=== PATIENT | male | born 1995 | race Caucasian/White ===

== ENCOUNTER 2017-08-01 09:02 | Emergency (ER) | payer OTHER ==
[~2017-08-01] VITALS: Ht 172.7 cm; Wt 43.0 kg
[~2017-08-01 09:02] MED LIST: LISD50 PO; RISP0.5T2 PO
[2017-08-01 09:10] VITALS: BP 139/80; PULSE 112; RESP 18; TEMP 98.4; O2SAT 100
[2017-08-01] MEDS ORDERED: BACT800T5 PO (09:28)
--- NOTE | 2017-08-01 09:33 | PD ---
HPI Chief Complaint: Skin Problem Time Seen by Provider: 09:16 Travel History International Travel<30 days: No Contact w/Intl Traveler<30days: No Traveled to known affect area: No History of Present Illness HPI Patient comes emergency Department complaining of pimple on his left anterior chinchilla that began approximately week and a half ago has got progressively bigger. Patient reports a mild stinging pain around the site. Denies any known injury. Denies any fevers. Denies doing anything for it. Denies anything making it better or worse. Mom reports that she squeezed it, which caused some discharge. PFSH Past Medical History ADD: Yes ADHD: Yes Asthma: Yes Autoimmune Disease: No Blood Disorders: No Anxiety: No Depression: No Cardiovascular Problems: No Cystic Fibrosis: No Diminished Hearing: No Genitourinary: No Musculoskeletal: No Neurologic: No Psychiatric: No Respiratory: Yes Immunizations Current: Yes Sickle Cell Disease: No Sleep Apnea: No Past Surgical History Other Surgery: No Social History Alcohol Use: No Tobacco Use: No ([employer]) Substance Use: No Allergies-Medications (Allergen,Severity, Reaction): Coded Allergies: No Known Allergies (Verified Adverse Reaction, Unknown, 08/01/17) Reported Meds & Prescriptions Reported Meds & Active Scripts Active Bactrim DS (Sulfamethoxazole-Trimethoprim) 800-160 Mg Tab 1 Tab PO BID Review of Systems General / Constitutional: No: Fever Eyes: No: Visual changes HENT: No: Headaches Cardiovascular: No: Chest Pain or Discomfort Respiratory: No: Shortness of Breath Gastrointestinal: No: Abdominal Pain Genitourinary: No: Dysuria Musculoskeletal: No: Pain Skin: No Rash Neurologic: No: Weakness Psychiatric: No: Depression Endocrine: No: Polydipsia Hematologic/Lymphatic: No: Easy Bruising Physical Exam Narrative GENERAL: Well-developed, well nourished, in no acute distress, and non-ill appearing. SKIN: Small area approximately 2.5 cm in greatest diameter of erythematous noted left anterior mid chinchilla. It is afebrile, mildly tender, and without drainage. There is no induration or crepitus. HEAD: Atraumatic. Normocephalic. EYES: Pupils equal and round. EOMI. No scleral icterus. No injection or drainage. ENT: No nasal bleeding or discharge. Mucous membranes pink and moist. NECK: Trachea midline. Supple. No nuclear rigidity. RESPIRATORY: No accessory muscle use. No respiratory distress. MUSCULOSKELETAL: No obvious deformities. No clubbing. No cyanosis. No edema. Full range of motion. NEUROLOGICAL: Awake and alert. No obvious cranial nerve deficits. Motor grossly within normal limits. Normal speech. PSYCHIATRIC: Appropriate mood and affect; insight and judgment normal. Data Data Last Documented VS Vital Signs Date Time Temp Pulse Resp B/P (MAP) Pulse Ox O2 Delivery O2 Flow Rate FiO2 08/01/17 09:10 98.4 112 18 139/80 (99) 100 Orders Orders Ed Discharge Order (08/01/17 09:33) MDM Medical Decision Making Medical Screen Exam Complete: Yes Emergency Medical Condition: Yes Differential Diagnosis Abscess, cellulitis, hematoma, folliculitis, gangrene Narrative Course The patient has cellulitis. There is no evidence of necrotizing fasciitis/ Forneirs at this time, pain is proportional and no crepitus is noted. There is no evidence of abscess as well at this time. The patient will be discharged on antibiotics. The patient was given signs and symptoms warnings for worsening infection, such as spreading of redness, increasing pain, and/or swelling, associated heat, or fever and instructed to return immediately if these signs or symptoms worsen. The patient is to follow up with physician in 2 days for recheck or return here in 2 days for recheck if unable to establish outpatient follow up. Sooner if worsens or as needed. The patient agrees with plan. Patient in no obvious distress upon re-evaluation. Patient was asked if they wanted to speak to my attending, which the patient did not wish to do at this time. Any questions/concerns in reference to patient diagnosis/condition discussed and clarified prior to patient's discharge. Reinforced sheer importance of close follow up with patient's primary physician or primary care clinic. Instructed patient to return to ED immediately, if symptoms return/ worsen. Patient showed understanding of above instructions. Further instructions and recommendations were detailed in discharge paperwork. Patient ambulated without difficulty out of ED at discharge. Diagnosis Primary Impression: Cellulitis and abscess of left leg Referrals: [facility] Patient Instructions: Cellulitis (ED), General Instructions Additional Instructions: Follow-up with your primary care physician or return here in 2 days for recheck. Take all medication as prescribed. Return to the emergency department if symptoms get worse. Med/Other Pt SpecificInfo: Prescription(s) given Scripts Sulfamethoxazole-Trimethoprim (Bactrim DS) 800-160 Mg Tab 1 TAB PO BID for Infection, #14 TAB 0 Refills Prov: Clara Rico DO 08/01/17 Disposition: 01 DISCHARGE HOME Condition: Stable Marek Hannah Aug 01, 2017 09:33
== END 2017-08-01 09:43 | disposition home or self-care (01) ==
LOC: PHED 09:02
DX: L02.416 Cutaneous abscess of left lower limb (principal); L03.116 Cellulitis of left lower limb
CPT/HCPCS: 99283

== ENCOUNTER 2017-11-13 03:09 | Emergency (ER) | payer OTHER ==
[~2017-11-13] VITALS: Ht 170.2 cm; Wt 45.0 kg
[~2017-11-13 03:09] MED LIST changes: +BACT800T5 PO; -LISD50 PO; -RISP0.5T2 PO
[2017-11-13 03:16] VITALS: BP 122/78; PULSE 112; RESP 16; TEMP 99.2; O2SAT 100
--- NOTE | 2017-11-13 03:43 | PD ---
HPI Chief Complaint: Musculoskeletal Complaint Time Seen by Provider: 03:28 Travel History International Travel<30 days: No Contact w/Intl Traveler<30days: No Traveled to known affect area: No History of Present Illness HPI The patient has a 22-year-old male with a history of DiGeorge's syndrome who complains of a muscle spasm on his right biceps femoris muscle. It started yesterday at 10 AM and went away for a while after massage but came back tonight. He states he feels like he has a muscle cramp/charley horse. This was never happened to him before. He is not on any diuretics or any other medications at all. He denies any trauma. The patient denies any fever, cough , ear pain, diarrhea, nausea, vomiting, abdominal pain, chest pain or shortness of breath. [facility] Past Medical History ADD: Yes ADHD: Yes Asthma: Yes Autoimmune Disease: No Blood Disorders: No Anxiety: No Depression: No Cardiovascular Problems: No Cystic Fibrosis: No Diminished Hearing: No Genitourinary: No Musculoskeletal: No Neurologic: No Psychiatric: No Respiratory: Yes Immunizations Current: Yes Sickle Cell Disease: No Sleep Apnea: No Tetanus Vaccination: Unknown Influenza Vaccination: No Past Surgical History Surgical History: No Previous Surgery Other Surgery: No Social History Alcohol Use: No Tobacco Use: No ([employer]) Substance Use: No Allergies-Medications (Allergen,Severity, Reaction): Coded Allergies: No Known Allergies (Verified Adverse Reaction, Unknown, 11/13/17) Reported Meds & Prescriptions Reported Meds & Active Scripts Active No Active Prescriptions or Reported Medications Review of Systems Except as stated in HPI: all other systems reviewed are Neg Physical Exam Narrative GENERAL: The patient is alert, oriented 3 in moderate apparent distress with his muscle spasm. His vital signs show heart rate of 112 but are otherwise normal. The patient is slight in build and is thin. SKIN: Focused skin assessment warm/dry. HEAD: Atraumatic. Normocephalic. EYES: Pupils equal and round. No scleral icterus. No injection or drainage. ENT: No nasal bleeding or discharge. Mucous membranes pink and moist. NECK: Trachea midline. No JVD. CARDIOVASCULAR: Regular rate and rhythm. No murmur appreciated. RESPIRATORY: No accessory muscle use. Clear to auscultation. Breath sounds equal bilaterally. GASTROINTESTINAL: Abdomen soft, non-tender, nondistended. Hepatic and splenic margins not palpable. MUSCULOSKELETAL: No obvious deformities. No clubbing. No cyanosis. No edema. There is tenderness over the right long head of the biceps for Jason muscle. No erythema is noted over this area, there is no evidence of infection. NEUROLOGICAL: Awake and alert. No obvious cranial nerve deficits. Motor grossly within normal limits. Normal speech. PSYCHIATRIC: Appropriate mood and affect; insight and judgment normal. Data Data Last Documented VS Vital Signs Date Time Temp Pulse Resp B/P (MAP) Pulse Ox O2 Delivery O2 Flow Rate FiO2 11/13/17 05:44 105 18 123/72 (89) 98 Room Air 11/13/17 03:16 99.2 Orders Orders Complete Blood Count With Diff (11/13/17 03:29) Basic Metabolic Panel (Bmp) (11/13/17 03:29) Magnesium (Mg) (11/13/17 03:29) Orphenadrine Inj (Norflex Inj) (11/13/17 03:45) Urinalysis - C+S If Indicated (11/13/17 04:17) Cyclobenzaprine (Flexeril) (11/13/17 04:30) Sodium Chlor 0.9% 1000 Ml Inj (Ns 1000 M (11/13/17 05:45) Labs Laboratory Tests Test 11/13/17 03:52 11/13/17 05:50 White Blood Count 17.6 TH/MM3 Red Blood Count 4.97 MIL/MM3 Hemoglobin 14.6 GM/DL Hematocrit 43.6 % Mean Corpuscular Volume 87.7 FL Mean Corpuscular Hemoglobin 29.4 PG Mean Corpuscular Hemoglobin Concent 33.5 % Red Cell Distribution Width 12.9 % Platelet Count 162 TH/MM3 Mean Platelet Volume 9.1 FL Neutrophils (%) (Auto) 89.8 % Lymphocytes (%) (Auto) 3.3 % Monocytes (%) (Auto) 6.1 % Eosinophils (%) (Auto) 0.2 % Basophils (%) (Auto) 0.6 % Neutrophils # (Auto) 15.8 TH/MM3 Lymphocytes # (Auto) 0.6 TH/MM3 Monocytes # (Auto) 1.1 TH/MM3 Eosinophils # (Auto) 0.0 TH/MM3 Basophils # (Auto) 0.1 TH/MM3 CBC Comment DIFF FINAL Differential Comment Blood Urea Nitrogen 12 MG/DL Creatinine 0.84 MG/DL Random Glucose 146 MG/DL Calcium Level 8.4 MG/DL Magnesium Level 2.1 MG/DL Sodium Level 134 MEQ/L Potassium Level 3.5 MEQ/L Chloride Level 100 MEQ/L Carbon Dioxide Level 25.2 MEQ/L Anion Gap 9 MEQ/L Estimat Glomerular Filtration Rate 116 ML/MIN Urine Color YELLOW Urine Turbidity CLEAR Urine pH 6.0 Urine Specific [place] 1.015 Urine Protein NEG mg/dL Urine Glucose (UA) NEG mg/dL Urine Ketones 15 mg/dL Urine Occult Blood NEG Urine Nitrite NEG Urine Bilirubin NEG Urine Urobilinogen 0.2 MG/DL Urine Leukocyte Esterase NEG Urine RBC 0-2 /hpf Urine WBC 0-2 /hpf Urine Squamous Epithelial Cells 0-5 /hpf Urine Bacteria NONE /hpf Microscopic Urinalysis Comment CULT NOT INDICATED MDM Medical Decision Making Medical Screen Exam Complete: Yes Emergency Medical Condition: Yes Medical Record Reviewed: Yes Interpretation(s) The sodium is 134 and the glucose 146 with a calcium 8.4 and the magnesium is normal. All of the rest of the basic metabolic profile is normal. The CBC shows a white count of 17,600 with 90% neutrophils. Differential Diagnosis Muscle spasm, electrolyte disorder, hypocalcemia, hypomagnesemia Narrative Course The patient has an elevated white count but I cannot find any source of sepsis or infection. His urine shows some ketones but there is no evidence of infection of his urine. It is now 0600 and the patient is able to straighten his leg out and he does feel better. I cannot explain his cramping by the electrolytes, calcium or magnesium. A heating pad does seem to help. I am afraid to give the patient benzodiazepines because of the history of paradoxical reaction with DiGeorge's syndrome. Plan: The patient will follow up with his primary care physician, use a heating pad and relax and stretch the muscle as best as he can at home. If he develops a fever, he should be seen immediately because of his DiGeorge's syndrome he could have reduced immune resistance to infection Diagnosis Primary Impression: Leg cramping Additional Instructions: As we discussed, if he develops a fever return immediately to the emergency department or he may be admitted for possible sepsis. At this time I cannot find any infection. Use a heating pad on its lowest setting and interpose a towel between his skin and the pad. Have him stretch the muscle as best he can. Follow-up with his primary care physician this week or next week. Med/Other Pt SpecificInfo: Prescription(s) given Scripts Cyclobenzaprine (Flexeril) 10 Mg Tab 10 MG PO TID for Muscle Spasm, #45 TAB 0 Refills Prov: Jagdish Jacobs MD 11/13/17 Disposition: 01 DISCHARGE HOME Condition: Stable Jagdish Jacobs MD Nov 13, 2017 03:43
[2017-11-13] MEDS ORDERED: ORPHENADRINE INJ 60 MG/2 ML AMP IM ONE (03:45)
[2017-11-13 03:57] LABS: AUTOMATED NEUTROPHIL # 15.8 TH/MM3 (1.8-7.7); BASOPHIL # 0.1 TH/MM3 (0-0.2); BASOPHIL % 0.6 % (0.0-2.0); EOSINOPHIL % 0.2 % (0.0-4.0); HEMATOCRIT 43.6 % (39.0-51.0); HEMOGLOBIN 14.6 GM/DL (13.0-17.0); LYMPH % 3.3 % (9.0-44.0); LYMPHOCYTE # 0.6 TH/MM3 (1.0-4.8); MEAN CELL VOLUME 87.7 FL (80.0-100.0); MEAN CORPUSCULAR HEMOGLOBIN 29.4 PG (27.0-34.0); MEAN CORPUSCULAR HGB CONC 33.5 % (32.0-36.0); MEAN PLATELET VOLUME 9.1 FL (7.0-11.0); MONO % 6.1 % (0.0-8.0); MONOCYTE # 1.1 TH/MM3 (0-0.9); NEUT % 89.8 % (16.0-70.0); PLATELET COUNT 162 TH/MM3 (150-450); RED BLOOD COUNT 4.97 MIL/MM3 (4.50-5.90); RED CELL DISTRIBUTION WIDTH 12.9 % (11.6-17.2); WHITE BLOOD COUNT 17.6 TH/MM3 (4.0-11.0)
[2017-11-13 04:07] LABS: CALCIUM 8.4 MG/DL (8.5-10.1)
[2017-11-13 04:08] LABS: BICARBONATE 25.2 MEQ/L (21.0-32.0); MAGNESIUM 2.1 MG/DL (1.5-2.5)
[2017-11-13 04:11] LABS: CREATININE 0.84 MG/DL (0.60-1.30)
[2017-11-13] MEDS ORDERED: CYCLOBENZAPRINE HCL 10 MG TAB PO ONE (04:30)
[2017-11-13] MEDS ORDERED: LORazepam 2 MG/ML VIAL IV PUSH ONE (04:30)
[2017-11-13 05:44] VITALS: BP 123/72; PULSE 105; RESP 18; O2SAT 98
[2017-11-13] MEDS ORDERED: SODIUM CHLOR 0.9% 1000 ML INJ 1,000 ML IV SCH (05:45)
[2017-11-13 05:55] LABS: BILIRUBIN, URINE NEG (NEG); BLOOD, URINE NEG (NEG); GLUCOSE,URINE NEG (NEG); KETONE, URINE 15 mg/dL (NEG); NITRITE,URINE NEG (NEG); URINE COLOR YELLOW (YELLW/STRAW); URINE LEUKOCYTE ESTERASE NEG (NEG)
[2017-11-13 05:59] LABS: RBC, URINE 0-2 /hpf (0-3); SQUAMOUS EPITHELIAL CELL URINE 0-5 /hpf (0-5); WBC, URINE 0-2 /hpf (0-5)
[2017-11-13] MEDS ORDERED: CYCL10TA PO (06:07)
[2017-11-13] MEDS ORDERED: KETOROLAC TROMETHAMINE 60 MG/2 ML (IM) VIAL IVP ONE (06:15)
[2017-11-13 06:20] VITALS: BP 122/70; TEMP 98.9
[2017-11-13] MEDS ORDERED: ZOFR4TAB PO (06:38)
== END 2017-11-13 06:40 | disposition home or self-care (01) ==
LOC: PHED 03:09
DX: R25.2 Cramp and spasm (principal); D82.1 Di George's syndrome; Z87.891 Personal history of nicotine dependence
CPT/HCPCS: 80048; 81001; 83735; 85025; 96361; 96372; 96374; 99284; J1885; J2360; J7030

== ENCOUNTER 2017-11-24 01:49 | Emergency (ER) | payer OTHER ==
[~2017-11-24] VITALS: Ht 170.2 cm; Wt 43.3 kg
[~2017-11-24 01:49] MED LIST changes: -BACT800T5 PO; +CYCL10TA PO; +ZOFR4TAB PO
[2017-11-24 02:30] VITALS: BP 133/84; PULSE 132; RESP 20; O2SAT 100
[2017-11-24] MEDS ORDERED: SODIUM CHLORIDE 0.9% FLUSH 10 ML FLUSH IVF PRN (02:30)
[2017-11-24 02:48] LABS: AUTOMATED NEUTROPHIL # 4.6 TH/MM3 (1.8-7.7); BASOPHIL # 0.1 TH/MM3 (0-0.2); EOSINOPHIL # 0.1 TH/MM3 (0-0.4); EOSINOPHIL % 1.4 % (0.0-4.0); HEMATOCRIT 38.7 % (39.0-51.0); HEMOGLOBIN 13.2 GM/DL (13.0-17.0); LYMPH % 18.3 % (9.0-44.0); LYMPHOCYTE # 1.1 TH/MM3 (1.0-4.8); MEAN CELL VOLUME 88.3 FL (80.0-100.0); MEAN CORPUSCULAR HEMOGLOBIN 30.1 PG (27.0-34.0); MEAN CORPUSCULAR HGB CONC 34.1 % (32.0-36.0); MONO % 4.8 % (0.0-8.0); MONOCYTE # 0.3 TH/MM3 (0-0.9); NEUT % 74.5 % (16.0-70.0); PLATELET COUNT 375 TH/MM3 (150-450); RED BLOOD COUNT 4.38 MIL/MM3 (4.50-5.90); RED CELL DISTRIBUTION WIDTH 12.6 % (11.6-17.2); WHITE BLOOD COUNT 6.2 TH/MM3 (4.0-11.0)
[2017-11-24] MEDS ORDERED: IBUP1TAB5 PO (02:54)
[2017-11-24 02:56] LABS: CHLORIDE 102 MEQ/L (98-107); SODIUM (NA) 138 MEQ/L (136-145)
[2017-11-24 02:59] LABS: BICARBONATE 30.6 MEQ/L (21.0-32.0); BLOOD UREA NITROGEN 11 MG/DL (7-18); CALCIUM 9.3 MG/DL (8.5-10.1); GLUCOSE,RANDOM 91 MG/DL (74-106); MAGNESIUM 2.5 MG/DL (1.5-2.5)
[2017-11-24 03:00] LABS: INTERNATIONAL NORMALIZED RATIO 1.1 RATIO; PROTHROMBIN TIME - PATIENT 11.5 SEC (9.8-11.6)
[2017-11-24 03:03] LABS: CREATININE 0.64 MG/DL (0.60-1.30); GLOMERULAR FILTRATION RATE 159 ML/MIN (>89)
[2017-11-24 03:07] LABS: TROPONIN I LESS THAN 0.02 NG/ML (0.02-0.05)
--- NOTE | 2017-11-24 03:08 | RADRPT ---
EXAM DATE/TIME: 11/24/2017 02:31 [facility] COMPARISON: No previous studies available for comparison. INDICATIONS : Shortness of breath. MEDICAL HISTORY : DiGeorge's syndrome. asthma. SURGICAL HISTORY : None. ENCOUNTER: Initial ACUITY: 1 day PAIN SCORE: 0/10 LOCATION: Bilateral chest FINDINGS: PA and lateral views of the chest demonstrate the lungs to be symmetrically aerated without evidence of mass, infiltrate or effusion. The cardiomediastinal contours are unremarkable. Osseous structure s are intact. Scoliotic changes. CONCLUSION: No acute disease. Marv Kendall MD on November 24, 2017 at 3:07 Board Certified Radiologist. This report was verified electronically.
--- NOTE | 2017-11-24 03:08 | RADRPT ---
EXAM DATE/TIME: 11/24/2017 02:31 [facility] COMPARISON: No previous studies available for comparison. INDICATIONS : Right foot swelling, no known trauma. MEDICAL HISTORY : DiGeorge's syndrome. SURGICAL HISTORY : None. ENCOUNTER: Initial ACUITY: 1 day PAIN SCORE: 5/10 LOCATION: Right foot. FINDINGS: Three view examination of the right foot demonstrates soft tissue swelling without dislocation, or fr acture. The tarsal bones appear intact. The interphalangeal and metatarsophalangeal joints are int act. The calcaneus is intact. Bony mineralization is normal. CONCLUSION: Soft tissue swelling without fracture. Marv Kendall MD on November 24, 2017 at 3:06 Board Certified Radiologist. This report was verified electronically.
[2017-11-24 03:55] VITALS: BP_SYST 125; BP_SYST 127; BP_DIAS 76; BP_DIAS 81; PULSE 110; RESP 20; O2SAT 98
[2017-11-24] MEDS ORDERED: SODIUM CHLORID 0.9% 500 ML INJ 500 ML IV ONE ×2 (04:15→05:30)
[2017-11-24] MEDS ORDERED: IOHEXOL 350 MG/ML 100 ML BTL (for RAD DIAG) IVCONTRAST ONE (04:51)
--- NOTE | 2017-11-24 05:03 | RADRPT ---
EXAM DATE/TIME: 11/24/2017 04:33 [facility] COMPARISON: CHEST PA & LAT, November 24, 2017, 2:31. INDICATIONS : Right lower extremity swelling. IV CONTRAST: 75 cc Omnipaque 350 (iohexol) IV RADIATION DOSE: 5.51 CTDIvol (mGy) MEDICAL HISTORY : None SURGICAL HISTORY : None. ENCOUNTER: Initial ACUITY: 1 day PAIN SCALE: 6/10 LOCATION: Right lower extremity TECHNIQUE: Volumetric scanning of the chest was performed using a pulmonary embolism protocol MIP images were re constructed. Using automated exposure control and adjustment of the mA and/or kV according to patien t size, radiation dose was kept as low as reasonably achievable to obtain optimal diagnostic quality images. DICOM format image data is available electronically for review and comparison. Follow-up recommendations for detected pulmonary nodules are based at a minimum on nodule size and pa tient risk factors according to Fleischner Society Guidelines. FINDINGS: PULMONARY ARTERIES: No filling defects are seen in the pulmonary arteries through the segmental level. LUNGS: There is no consolidation or pneumothorax . No concerning pulmonary nodule is visualized. PLEURAE: There is no pleural thickening or pleural effusion. MEDIASTINUM: There is good visualization of the great vessels of the middle mediastinum. No evidence of mediastin al or hilar adenopathy/mass. MUSCULOSKELETAL: Within normal limits for patient age. MISCELLANEOUS: The visualized upper abdominal organs demonstrate no acute abnormality. CONCLUSION: 1. No evidence for pulmonary embolism. 2. No infiltrate or pleural effusion. Marv Kendall MD on November 24, 2017 at 5:00 Board Certified Radiologist. This report was verified electronically.
[2017-11-24 05:13] LABS: BILIRUBIN, URINE NEG (NEG); BLOOD, URINE NEG (NEG); GLUCOSE,URINE NEG (NEG); KETONE, URINE NEG (NEG); NITRITE,URINE NEG (NEG); PH, URINE 7.5 (5.0-8.5); URINE COLOR YELLOW (YELLW/STRAW); URINE LEUKOCYTE ESTERASE NEG (NEG)
--- NOTE | 2017-11-24 05:29 | PD ---
HPI Chief Complaint: Musculoskeletal Complaint Time Seen by Provider: 02:20 Travel History International Travel<30 days: No Contact w/Intl Traveler<30days: No Traveled to known affect area: No History of Present Illness HPI 22-year-old male presents to the emergency department by private transportation for evaluation of swelling of his right foot and lower leg. Mother has noted this since last evening. Patient does not report specific pain but does note increasing swelling. Patient typically has very thin lower legs and feet. Patient has history of DiGeorge's syndrome. Patient has no prior history of cardiac disease. Patient does not report shortness of breath orthopnea PND or dyspnea on exertion or at rest. Patient denies chest pain. There is been no referred neck jaw back shoulder arm or mid scapular pain. Patient's had no fever chills. Patient was in the emergency department for pain to the right lower extremity approximately 1 week ago with muscle cramping and was prescribed Flexeril. Patient took a one-time dose of Flexeril prior to arrival to the emergency department some improvement of discomfort. No prior history of kidney dysfunction. Recent long distance travel protracted bedrest. Patient also complains of some intermittent sharp chest pain since noting swelling of the right lower extremity. No injury or fall. Patient states earlier before the foot was swollen he noted that when he got up from working on a computer screen that his right leg seemed to give way on him and is unsure whether or not he twisted or injured his ankle at that time but does not recall specific ankle or foot pain. Patient rates discomfort 0/10 intensity. PFSH Past Medical History Narrative Medical ADHD ADD DiGeorge's syndrome asthma; no surgery; nursing notes reviewed ADD: Yes ADHD: Yes Asthma: Yes (childhood) Autoimmune Disease: No Blood Disorders: No Anxiety: No Depression: No Cardiovascular Problems: No Cystic Fibrosis: No Diminished Hearing: No Genitourinary: No Medical other: Yes (chromosome deficiency-DiGeorge syndrome ) Musculoskeletal: No Neurologic: No Psychiatric: No Respiratory: Yes Immunizations Current: Yes Sickle Cell Disease: No Sleep Apnea: No Past Surgical History Other Surgery: No Social History Alcohol Use: No Tobacco Use: No Substance Use: No Allergies-Medications (Allergen,Severity, Reaction): Coded Allergies: No Known Allergies (Verified Adverse Reaction, Unknown, 11/13/17) Reported Meds & Prescriptions Reported Meds & Active Scripts Active Flexeril (Cyclobenzaprine HCl) 10 Mg Tab 10 Mg PO TID Reported Ibuprofen 400 Mg Tab 400 Mg PO Q6H PRN Review of Systems Except as stated in HPI: all other systems reviewed are Neg General / Constitutional: No: Fever, Chills Eyes: No: Visual changes HENT: No: Headaches, Lightheadedness Cardiovascular: Positive: Chest Pain or Discomfort (Transient), Dyspnea on exertion, Edema, No: Palpitations, Diaphoresis, Syncope Respiratory: No: Cough, Shortness of Breath, Orthopnea, Hemoptysis Gastrointestinal: No: Nausea, Vomiting, Abdominal Pain Genitourinary: No: Dysuria, Flank Pain Musculoskeletal: Positive: Edema (Right lower extremity greater than left lower external), No: Myalgias, Arthralgias, Limited ROM Skin: No Rash Neurologic: No: Weakness, Dizziness, Syncope, Focal Abnormalities, Coordination Problem Psychiatric: No: Anxiety Endocrine: No: Heat Intolerance Hematologic/Lymphatic: No: Easy Bruising Physical Exam Narrative GENERAL: Well-developed well-nourished thin male in no acute distress no respiratory distress SKIN: Warm and dry. HEAD: Normocephalic. EYES: No scleral icterus. No injection or drainage. NECK: Supple, trachea midline. No JVD or lymphadenopathy. CARDIOVASCULAR: Increased regular rate and rhythm without murmurs, gallops, or rubs. RESPIRATORY: Breath sounds equal bilaterally. No accessory muscle use. GASTROINTESTINAL: Abdomen soft, non-tender, nondistended. MUSCULOSKELETAL: No cyanosis, right lower leg, ankle, and pedal edema greater than left ankle and pedal edema. Bilateral dorsalis pedis pulses 2+ to palpation. Negative Homans sign. No cording. BACK: Nontender without obvious deformity. No CVA tenderness. Data Data Last Documented VS Vital Signs Date Time Temp Pulse Resp B/P (MAP) Pulse Ox O2 Delivery O2 Flow Rate FiO2 11/24/17 05:54 120 18 116/73 (87) 100 Room Air Orders Orders Foot, Complete ([id number]) (11/24/17 ) Electrocardiogram (11/24/17 02:20) Basic Metabolic Panel (Bmp) (11/24/17 02:20) B-Type Natriuretic Peptide (11/24/17 02:20) Ckmb (Isoenzyme) Profile (11/24/17 02:20) Complete Blood Count With Diff (11/24/17 02:20) Magnesium (Mg) (11/24/17 02:20) Prothrombin Time / Inr (Pt) (11/24/17 02:20) Act Partial Throm Time (Ptt) (11/24/17 02:20) Troponin I (11/24/17 02:20) Ecg Monitoring (11/24/17 02:20) Bilateral Bp Monitoring (11/24/17 02:20) Iv Access Insert/Monitor (11/24/17 02:20) Oximetry (11/24/17 02:20) Oxygen Administration (11/24/17 02:20) Sodium Chloride 0.9% Flush (Ns Flush) (11/24/17 02:30) Chest, Pa & Lat (11/24/17 02:20) Urinalysis - C+S If Indicated (11/24/17 02:20) CKMB (11/24/17 02:30) CKMB% (11/24/17 02:30) D-Dimer (11/24/17 03:21) Ct Pulmonary Angiogram (11/24/17 ) Sodium Chlorid 0.9% 500 Ml Inj (Ns 500 M (11/24/17 04:15) Iohexol 350 Inj (Omnipaque 350 Inj) (11/24/17 04:51) Us Leg Venous Doppler (11/24/17 ) Sodium Chlorid 0.9% 500 Ml Inj (Ns 500 M (11/24/17 05:30) Labs Laboratory Tests Test 11/24/17 02:30 11/24/17 05:00 White Blood Count 6.2 TH/MM3 Red Blood Count 4.38 MIL/MM3 Hemoglobin 13.2 GM/DL Hematocrit 38.7 % Mean Corpuscular Volume 88.3 FL Mean Corpuscular Hemoglobin 30.1 PG Mean Corpuscular Hemoglobin Concent 34.1 % Red Cell Distribution Width 12.6 % Platelet Count 375 TH/MM3 Mean Platelet Volume 8.0 FL Neutrophils (%) (Auto) 74.5 % Lymphocytes (%) (Auto) 18.3 % Monocytes (%) (Auto) 4.8 % Eosinophils (%) (Auto) 1.4 % Basophils (%) (Auto) 1.0 % Neutrophils # (Auto) 4.6 TH/MM3 Lymphocytes # (Auto) 1.1 TH/MM3 Monocytes # (Auto) 0.3 TH/MM3 Eosinophils # (Auto) 0.1 TH/MM3 Basophils # (Auto) 0.1 TH/MM3 CBC Comment DIFF FINAL Differential Comment Prothrombin Time 11.5 SEC Prothromb Time International Ratio 1.1 RATIO Activated Partial Thromboplast Time 27.5 SEC D-Dimer Quantitative (PE/DVT) 5.46 MG/L FEU Blood Urea Nitrogen 11 MG/DL Creatinine 0.64 MG/DL Random Glucose 91 MG/DL Calcium Level 9.3 MG/DL Magnesium Level 2.5 MG/DL Sodium Level 138 MEQ/L Potassium Level 3.6 MEQ/L Chloride Level 102 MEQ/L Carbon Dioxide Level 30.6 MEQ/L Anion Gap 5 MEQ/L Estimat Glomerular Filtration Rate 159 ML/MIN Total Creatine Kinase 118 U/L Creatine Kinase MB 0.5 NG/ML Troponin I LESS THAN 0.02 NG/ML B-Type Natriuretic Peptide 8 PG/ML Urine Collection Type CLEAN CATCH Urine Color YELLOW Urine Turbidity CLEAR Urine pH 7.5 Urine Specific [place] 1.010 Urine Protein NEG mg/dL Urine Glucose (UA) NEG mg/dL Urine Ketones NEG mg/dL Urine Occult Blood NEG Urine Nitrite NEG Urine Bilirubin NEG Urine Urobilinogen 0.2 MG/DL Urine Leukocyte Esterase NEG Urine Squamous Epithelial Cells 0-5 /hpf Microscopic Urinalysis Comment CULT NOT INDICATED MDM Medical Decision Making Medical Screen Exam Complete: Yes Emergency Medical Condition: Yes Medical Record Reviewed: Yes Interpretation(s) EKG: sinus tachycardia [id number] no acute ST elevation or injury pattern change nonspecific ST segment flattening anteriorly D-dimer: 5.46, elevated BNP: 8, not elevated Troponin I: Less than 0.02; CK: 118, not elevated Last Impressions Chest X-Ray 11/24/170 Signed Impressions: Service Date/Time: Friday, November 24, 2017 02:31 - CONCLUSION: No acute disease. Marv Kendall MD Foot X-Ray 11/24/17 Signed Impressions: Service Date/Time: Friday, November 24, 2017 02:31 - CONCLUSION: Soft tissue swelling without fracture. Marv Kendall MD CT Angiography 11/24/17 Signed Impressions: Service Date/Time: Friday, November 24, 2017 04:33 - CONCLUSION: 1. No evidence for pulmonary embolism. 2. No infiltrate or pleural effusion. Marv Kendall MD CBC & BMP Diagram 11/24/17 02:30 Calcium Level 9.3, Magnesium Level 2.5 Vital Signs Date Time Temp Pulse Resp B/P (MAP) Pulse Ox O2 Delivery O2 Flow Rate FiO2 11/24/17 03:55 110 20 125/76 (92) 98 Room Air 11/24/17 03:55 110 20 125/76 (92) 98 Room Air 127/81 (96) 11/24/17 03:02 Room Air 11/24/17 02:30 132 20 133/84 (100) 100 Room Air 11/24/17 02:30 132 20 133/84 (100) 100 US RLE: negative for DVT Differential Diagnosis Pedal edema, dependent edema, CHF, renal failure, DVT, PE, fracture, sprain, also to consider rhabdomyolysis; no findings for compartment syndrome Narrative Course Specimens collected and sent for resulting patient identified to have tachycardia on triage vital signs EKG performed shows sinus tachycardia no acute ST elevation or injury pattern change nonspecific ST segment flattening anteriorly Chest x-ray no lobar infiltrate no vascular congestion Lab values grossly normal range except for elevated d-dimer of 5.[address] pulmonary angiogram ordered CT pulmonary angiogram negative for PE patient continues complain of swelling and pain to the right lower extremity will order ultrasound however suspect this is dependent edema Ultrasound of the right lower extremity is negative for PE Patient is stable for outpatient management and follow-up with his primary care provider Dr. Foster Diagnosis Primary Impression: Dependent edema Referrals: Primary Care Physician call for appointment Patient Instructions: General Instructions Additional Instructions: Elevate lower extremities Take ibuprofen as needed for minor discomfort Continue muscle relaxant as prescribed as needed for muscle spasm Increase fluid hydration Follow-up with your primary care provider Return to the emergency department for any concerns or change condition Disposition: 01 DISCHARGE HOME Condition: Stable Lizbeth Cosby MD Nov 24, 2017 05:29
[2017-11-24 05:31] LABS: SQUAMOUS EPITHELIAL CELL URINE 0-5 /hpf (0-5)
[2017-11-24 05:54] VITALS: BP 116/73; PULSE 120; RESP 18; O2SAT 100
--- NOTE | 2017-11-24 06:50 | RADRPT ---
EXAM DATE/TIME: 11/24/2017 06:18 [facility] COMPARISON: No previous studies available for comparison. INDICATIONS : Right leg swelling. MEDICAL HISTORY : ADD. ADHD. Cough. DiGeorge syndrome. SURGICAL HISTORY : None. ENCOUNTER: Initial ACUITY: 1 day PAIN SCORE: 8/10 LOCATION: Right leg. TECHNIQUE: Venous ultrasound of the leg was performed from the inguinal ligament to the proximal calf. Real-birdie e, color Doppler and spectral tracing, compression and augmentation techniques were used. FINDINGS: There is normal compressibility of the deep venous system from the inguinal region to the proximal ca lf. No echogenic clot is seen in the lumen of the common femoral, femoral, popliteal, and posterior tibial veins. There is a normal response of the venous system to proximal and distal augmentation an d respiration. CONCLUSION: No DVT right leg. Marv Kendall MD on November 24, 2017 at 6:48 Board Certified Radiologist. This report was verified electronically.
[2017-11-24 07:28] VITALS: BP 128/76
--- NOTE | 2017-11-24 15:24 | EKG ---
Date Performed: 11/24/2017 Time Performed: 02:30:11 PTAGE: 22 years EKG: SINUS TACHYCARDIA MODERATE T-WAVE ABNORMALITY, CONSIDER ANTERIOR ISCHEMIA Since the previou s tracing, no significant change noted ABNORMAL ECG PREVIOUS TRACING : 04/29/2016 10.32 DOCTOR: Gretchen Kraus Interpretating Date/Time 11/24/2017 15:16:21
== END 2017-11-24 07:35 | disposition home or self-care (01) ==
LOC: PHED 01:49
DX: R60.0 Localized edema (principal); R07.9 Chest pain, unspecified; R94.31 Abnormal electrocardiogram [ECG] [EKG]; D82.1 Di George's syndrome; F90.9 Attention-deficit hyperactivity disorder, unspecified type; J45.909 Unspecified asthma, uncomplicated
CPT/HCPCS: 71046; 71275; 73630; 80048; 81001; 82550; 82552; 83735; 83880; 84484; 85025; 85379; 85610; 85730; 93005; 93971; 96360; 96361; 99285; J7040; Q9967